=== PATIENT | male | born 1985 | race Two or more races ===

== ENCOUNTER 2024-10-02 07:54 | Outpatient (AMB) | payer MEDICAID, SELFPAY ==
--- NOTE | 2024-10-02 08:08 | PD.ORTHCLVIS ---
Vital signs 10/02/24 08:09 Height 1.7 m Height Method Stated Weight 95.028 kg Weight Measurement Method Standing Scale BMI 32.8 BP 130/80 Blood Pressure Source Automatic Cuff Blood Pressure Location Right Upper Arm Position Sitting Respiration 18 Pulse 65 Pulse Source Monitor Temp 98.3 F Temp Source Temporal Artery Scan Pulse Oximetry (%) 95 Oxygen Delivery Method Room Air Med/Allergies Allergies & Medications Allergies No Known Allergies Allergy (Verified 10/02/24 08:09) Medication Reconciliation celecoxib 200 mg capsule 200 mg PO BID #60 caps 08/14/24 [Rx Confirmed 10/02/24] Subjective Visit Visit for: follow up visit and knee Immunization / Flu Flu Vaccine in the Last 12 Months: No Flu Vaccine Exclusion Criteria: No Exclusion Criteria History of Present Illness Chief complaint: f/u knee pain Although is a 39-year-old male with a history of chronic pain on methadone who has persistent bilateral knee pain. We did bilateral knee meniscectomies that were staged. He received Approximately 3 months of relief on each knee. The pain did come back and we have been doing persistent injections. I set him a referral to pain management but he was unhappy with the provider there. He reports he has pain all the time Personal History Red flag PMH: smoker (NON SMOKER ) Pain Pain level (0-10): 8 Pain duration: all day Pain location: inside (medial), outside (lateral), anterior and posterior Pain quality: sharp Pain timing: increases with activity and stairs Associated signs & symptoms: none Ambulatory data Ambulatory device: none Treatments Improvement with previous injections: No Improvement with PT: No Improvement with NSAIDS: n/a Review of Systems Review of Systems: All systems negative unless otherwise noted in HPI. Exam Exam Patient is in no acute distress and is cooperative with the examination today. Patient has a normal mood and affect. Breathing is nonlabored. In no respiratory distress. Bilateral extremities were evaluated and demonstrates sensation intact to light touch. Palpable pedal pulses are present. No significant edema is present. Bilateral knee incisions are clean dry intact. He has a negative Boby's bilaterally. The knees have great range of motion. Range of motion 0 to 110 degrees. He is tender to palpation diffusely. Assessment and Plan Problem List (1) Medial meniscus tear: Status: Acute Plan: Patient is a pleasant 38-year-old male who initially recovered well from a right and left knee partial meniscectomy. Itz has persistent bilateral leg pain that starts in the knee and radiates down to his foot. He also prior spine fusion. I wonder how much of this is coming from His back and he has had a prior fusion there. I sent him to a pain management doctor but he was unhappy with the care. We are doing bilateral knee injections again today. He reports it helps for a very short period of time. I am not confident the pain is coming from his knee and I told him that it is very difficult to treat chronic knee pain especially with a history of back issues that are underlying. I recommend that he see a second opinion as I have not made him significantly better. I would recommend that he see a spine doctor versus a orthopedic sports doctor. We could potentially we order MRIs to see if there is any further pathology that we missed before. At this point in time, I do recommend that he see someone for a second opinion Office Procedures GNS Level of Care Nursing/Assessment Patient Status: Established Patient Nursing Assessment/Reassesment: Medication Reconciliation, Update PMH in EMR and Vital Signs Coordination of Care: Complex Care and Chronic Disease 1-5, Education Complex Pt/Fam, Consent,records obtained, informed consent, Results/Orders obtained and Staff clarify orders Established Patient Charge Established Patient Point Assignment: 95 Established Patient Point Charge: EP Level 3 (80-115) Past Medical History Past Medical History Have you ever been diagnosed with any of the following: Neurological Problems Seizures: No Cardiology Problems Congestive Heart Failure: No Respiratory Problems Chronic Obstructive Pulmonary Disease (COPD): No Smoking: No Smoking Cessation Counseling: No Smoking Exposure: No Tobacco Use: No Genital/Urinary Problems Renal Disease: No Endocrine Problems Diabetes Mellitus Type 1: No Diabetes Mellitus Type 2: No Other Problems Hospitalization: No Shingles: No Blood Transfusions: No Blood Transfusion Reaction: No Anesthesia Reactions: No Cancer: No
[2024-10-02 08:09] VITALS: BP 130/80; PULSE 65; RESP 18; TEMP 36.8; O2SAT 95; BMI 32.8
== END 2024-10-02 09:01 | disposition home or self-care (01) ==
LOC: HODSRG 07:54
PROVIDERS: Supervising Provider Orthopaedic Surgery Adult Reconstructive Orthopaedic Surgery; Visit Provider Orthopaedic Surgery Adult Reconstructive Orthopaedic Surgery
DX: S83.209D Unspecified tear of unspecified meniscus, current injury, unspecified knee, subsequent encounter (principal); X58.XXXD Exposure to other specified factors, subsequent encounter; M25.562 Pain in left knee; M25.561 Pain in right knee; Z98.890 Other specified postprocedural states
CPT/HCPCS: 20610; 99213; J3301; J3490; G0463

== ENCOUNTER → 2024-10-05 | Outpatient (CLI) | payer MEDICAID, SELFPAY ==
--- NOTE | 2024-10-05 10:28 | XR_ITS ---
Examination: Lumbar spine, 5 views Technique: Lumbar spine AP, lateral, coned lateral lower lumbar spine, bilateral obliques 5 views Exam date and time: October 05, 2024 1121 hours INDICATIONS: Right-sided lower back pain years, lumbar fusion 2011 FINDINGS: Lumbar fusion L4-S1 with anatomic alignment Mild disc narrowing L2-L3, L3-L4 No lumbar fracture IMPRESSION: Lumbar fusion L4-S1 with anatomic alignment
== END | disposition home or self-care (01) ==
PROVIDERS: PCP Family Medicine; Referring Provider Family Medicine; Visit Provider Family Medicine
DX: M43.27 Fusion of spine, lumbosacral region (principal)
CPT/HCPCS: 72110

== ENCOUNTER 2025-01-24 08:12 | Emergency (ER) | payer MEDICAID, SELFPAY ==
[2025-01-24 08:13] VITALS: BMI 31.1
[2025-01-24 08:28] VITALS: BP 149/99; PULSE 83; RESP 18; TEMP 36.8; O2SAT 99
--- NOTE | 2025-01-24 08:38 | EKG_ITS ---
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
--- NOTE | 2025-01-24 08:41 | XR_ITS ---
Examination: PA lateral chest 2 views TECHNIQUE: Upright PA and lateral chest 2 views Exam date and time: 2024 at 0911 hours INDICATIONS: Left-sided chest pain beginning 3 days ago. FINDINGS: Normal heart size. Lungs are clear. Osseous structures are intact. IMPRESSION: No active disease
[2025-01-24 08:56] LABS: Basophils # (Auto) 0.1 Thou/mm3 (0.0-0.2); Basophils % (Auto) 1 % (0-2.5); Eosinophils # (Auto) 0.1 Thou/mm3 (0.0-0.5); Eosinophils % (Auto) 2 % (0-10); Hemoglobin 17.3 g/dL (13.5-16.0); Immature Granulocytes % (Auto) 0 % (0-0); Immature Granulocytes Auto 0.01 Thou/mm3 (0.00-0.00); Lymphocytes # (Auto) 1.3 Thou/mm3 (1.0-4.8); Lymphocytes % (Auto) 21 % (10-50); Mean Corpuscular HGB Conc 34.6 g/dl (31.0-37.0); Mean Corpuscular Hemoglobin 30.2 pg (25.0-35.0); Mean Corpuscular Volume 87 fL (80-100); Monocytes # (Auto) 0.8 Thou/mm3 (0.0-0.8); Monocytes % (Auto) 13 % (0-12); Neutrophils # (Auto) 3.9 Thou/mm3 (1.8-7.7); Neutrophils % (Auto) 63 % (37-80); Nucleated Red Blood Cell % 0 /100 WBC (0); Platelet Count 255 Thou/mm3 (140-440); RDW Standard Deviation 39.7 fL (35.1-43.9); Red Blood Count 5.72 Miln/mm3 (4.50-5.90); White Blood Count 6.2 Thou/mm3 (3.8-10.6)
[2025-01-24 09:30] LABS: Collection Type, Urine Clean Catch; Squamous Epithelial Cell,Urine 0 /hpf (0-5)
[2025-01-24 09:43] LABS: Bilirubin,Urine Negative (Negative); Blood,Urine Negative (Negative); Clarity,Urine Clear (Clear/Hazy); Color,Urine Lt-Yellow (Lt Yel-Yel); Culture Indicated,Urine Not Indicated; Glucose, Urine Negative (Negative); Ketones,Urine Negative (Negative); Leukocyte Esterase,Urine Negative (Negative); Nitrite,Urine Negative (Negative); PH,Urine 6.5 (5.0-7.0); Protein,Urine Negative (Neg - Trace); RBC,Urine 2 /hpf (0-3); Specific Gravity,Urine 1.023 (1.001-1.035); Urobilinogen,Urine Negative mg/dL (0.0-1.0); WBC,Urine < 1 /hpf (0-5)
[2025-01-24 09:50] LABS: Amphetamine/Methamp Scrn,U Negative (Negative); Barbiturate Screen,Urine Negative (Negative); Benzodiazepines Screen,Urine Negative (Negative); Benzoylecgonine Screen, Ur Negative (Negative); Fentanyl Screen,Urine Negative (Negative); Opiate Screen,Urine Negative (Negative); THC Screen,Urine Negative (Negative)
[2025-01-24 10:05] LABS: Alanine Aminotransferase 18 U/L (10-49); Albumin, Serum 4.7 gm/dL (3.5-5.0); Albumin/Globulin Ratio 1.6 (1.2-2.2); Alkaline Phosphatase 90 U/L (46-116); Anion Gap 7 (7-16); Aspartate Amino Transferase 19 U/L (0-34); BUN/Creatinine Ratio 16 Ratio (12-20); Bilirubin,Total 0.6 mg/dL (0.3-1.2); Blood Urea Nitrogen 16 mg/dL (9-23); Calcium 9.8 mg/dL (8.3-10.6); Calcium (Corrected) 9.8 mg/dL (8.5-10.1); Carbon Dioxide 27.8 mMol/L (20.0-31.0); Chloride 105 mMol/L (98-107); Estimated Creatinine Clearance 109.7 mL/min (>60); Glucose 111 mg/dL (74-106); Lipase 34 U/L (12-53); Osmolality,Calculated 281 (275-295); Potassium 4.3 mMol/L (3.4-5.1); Sodium 140 mMol/L (136-145); Total Protein 7.7 gm/dL (5.7-8.2); Troponin I < 0.002 ng/mL (0.0-0.045); eGFR > 60 See Note
--- NOTE | 2025-01-24 10:22 | EDNOTE_ITS ---
<Statement entered by Melissa Pettit MD - 01/25/25 17:54> As co-signing physician, I was present and available for consult prn. I concur with the plan and care as documented by the midlevel provider. ED General RME/HPI General Chief complaint: Abdominal Pain Stated complaint: ABD PAIN RADIATING TO BACK, FEELS LIKE NEEDLES Time Seen by Provider: 01/24/25 08:15 Arrival date/time: 01/24/25 08:12 39-year-old male with history of anxiety history of drug use currently on methadone presents to the emergency department today for complaints of generalized anxiety, stress, chest pain abdominal pain and generalized bodyaches. Limitations: no limitations Related Data Previous Rx's ?Medication ?Instructions ?Recorded celecoxib 200 mg capsule 200 mg PO BID #60 caps 10/23 Allergies Allergy/AdvReac Type Severity Reaction Status Date / Time No Known Allergies Allergy Verified 01/24/25 08:16 Review of Systems Review of Systems Systems Reviewed: All systems reviewed, normal except as documented Constitutional Constitutional: Reports system reviewed and no additional complaints, except as documented, Denies fever(s) and Denies headache(s) Eyes Eyes: Reports system reviewed and no additional complaints, except as documented and Denies blurry vision ENT Ears, Nose, Mouth, and Throat: Reports system reviewed and no additional complaints, except as documented, Denies headache(s), Denies nasal congestion and Denies nasal discharge Cardiovascular Cardiovascular: Reports system reviewed and no additional complaints, except as documented, Denies chest pain and Denies dyspnea Respiratory Respiratory: Reports system reviewed and no additional complaints, except as documented, Denies chest congestion, Denies cough and Denies dyspnea Gastrointestinal Gastrointestinal: Reports system reviewed and no additional complaints, except as documented and Denies abdominal pain Integumentary/Breasts Skin/Breast: Reports system reviewed and no additional complaints, except as documented and Denies rash Neurologic Neurologic: Reports system reviewed and no additional complaints, except as documented, Reports as per HPI and Denies headache(s) Psychiatric Psychiatric: Reports system reviewed and no additional complaints, except as documented and Reports anxiety Past Medical History Past Medical History NEUROLOGIC: Negative Neurological Disorders or Seizures CARDIAC: Negative Cardiac Disorders or Congestive Heart Failure RESPIRATORY: Negative Chronic Obstructive Pulmonary Disease (COPD), Smoking, Smoking Cessation Counseling, Smoking Exposure or Tobacco Use GASTROINTESTINAL: Negative Gastrointestinal Disorders GENITOURINARY: Negative Genitourinary Disorders or Renal Disease MUSCULOSKELETAL: Positive Musculoskeletal Disorders (bilateral knee pain) ENDOCRINE: Negative Endocrine Disorders, Diabetes Mellitus Type 1 or Diabetes Mellitus Type 2 HEMATOLOGIC: Negative Blood Disorders OTHER HISTORY: Negative Hospitalization, Autoimmune Disease, Shingles, Blood Transfusions, Blood Transfusion Reaction, Anesthesia Reactions or Cancer Family History FAMILY HISTORY: Positive Family Surgery; Negative Family Psychiatric Problems, Family Respiratory Disorders, Family Cardiac Disorders, Family Gastrointestinal Problems, Family Cancer or Family Anesthesia Reaction Surgical History SURGICAL: Positive Nose Surgery (Septoplasty) and Arthroscopy (right knee) Social History SMOKING STATUS: Never smoker ED Exam General Limitations: Present no limitations General appearance: Present alert and in no apparent distress Head Head exam: Present atraumatic, normocephalic and normal inspection Eye Eye exam: Present normal appearance, PERRL and EOMI; Absent conjunctival injection ENT ENT exam: Present normal exam, normal oropharynx and mucous membranes moist Neck Neck exam: Present normal inspection, full ROM and trachea midline Chest Chest inspection: Present normal inspection and symmetric chest wall rise Respiratory Respiratory exam: Present normal lung sounds bilaterally; Absent respiratory distress Cardiovascular Cardiovascular exam: Present regular rate, normal rhythm and normal heart sounds Abdominal Exam Abdominal exam: Present soft and normal bowel sounds; Absent distention, tenderness, guarding, rebound or rigidity Extremities Exam Extremities exam: Present normal inspection and full ROM Back Exam Back exam: Present normal inspection and full ROM Neurological Exam Neurological exam: Present alert, oriented X3, CN II-XII intact, normal gait and reflexes normal; Absent motor sensory deficit Psychiatric Psychiatric exam: Present anxious; Absent depressed, agitated, flat affect, homicidal ideation or suicidal ideation Skin Skin exam: Present warm, dry and intact Course Quality Measures none Orders Category Date Time Status EKG (ED ONLY) *Do not use* NOW Care 01/24/25 08:38 Completed EKG (ED Only) Stat Exams 01/24/25 08:38 Draft XR chest 2V Stat Exams 01/24/25 08:41 Completed CBC Stat Lab 01/24/25 08:40 Completed Comprehensive Metabolic Panel Stat Lab 01/24/25 08:40 Completed Drug Screen,Urine Stat Lab 01/24/25 09:02 Completed Lipase Stat Lab 01/24/25 08:40 Completed Troponin I Stat Lab 01/24/25 08:40 Completed UA, C/S IF [Urinalysis, C/S if Indicated] Stat Lab 01/24/25 09:02 Completed Vital Signs Vital signs: Vital Signs Temperature 98.3 F 01/24/25 08:28 Pulse Rate 83 01/24/25 08:28 Respiratory Rate 18 01/24/25 08:28 Blood Pressure 149/99 H 01/24/25 08:28 Pulse Oximetry (%) 99 01/24/25 08:28 Oxygen Delivery Method Room Air 01/24/25 08:28 O2 saturation 99% on room air within the limits Procedures -ED EKG Interpretation #1: Date of EK01/24/25 Time of EK:46 Rate: 77 Interpretation: Interpreted by me EKG Impression: Normal sinus rhythm, No acute ST-T changes, No ectopy, No ischemic changes, Normal QRS, Normal intervals and Normal axis MDM Patient data External records reviewed:: [facility] previous records Clinical information provided by:: patient Social determinants that could affect healthcare access:: none Patient has the following chronic illnesses:: none How is presenting disease/condition affected by chronic disease/condition?: no chronic disease Evaluation data The following diagnostics were reviewed and interpreted by me:: lab results and radiology exam(s) Lab and/or radiology exams considered but not ordered:: Labs radiology obtained Interpretation Summary: Reviewed by me Medications Medications considered but not ordered:: Given Medication administrations:: Given Consultations Consultation(s) initiated? (list below): No Diagnosis Differential Diagnosis ED Complaint MDM: Anxiety, stress reaction, chest pain, abdominal pain Most likely diagnosis given after review of the tests above:: Anxiety Admission Indicated Admission indicated?: not indicated Explain why admission is indicated or not indicated:: No criteria Admission Request Was there a request for admission?: No Disposition Plan Disposition Plan: Discharge Discharge Attestation Discharge Attestation: The patient and all family members were given an opportunity to ask questions and understood the discharge instructions. Discharge instructions specifically effects, indications for sooner follow up or return to the emergency department, and the expected course of current diagnosis. Patient condition: Stable Medical Decision Making MDM Narrative MDM Narrative: 39-year-old male with history of anxiety history of drug use currently on methadone presents to the emergency department today for complaints of generalized anxiety, stress, chest pain abdominal pain and generalized bodyaches. Lab work as well as imaging and EKG obtained There are no acute emergent findings noted at this time Symptoms are highly consistent with anxiety Patient discharged home in no distress to follow-up with primary care doctor in the next 24 to 48 hours and for any worsening symptoms to return to the ER immediately Differential Diagnosis Differential Diagnosis: Anxiety, stress reaction, chest pain, abdominal pain Medical Records Medical records reviewed: Yes I reviewed the patient's medical records. Lab Data Lab results reviewed: Yes I reviewed the patient's lab results. 01/24/25 08:40 01/24/25 08:40 Labs: Lab Results 01/24/25 01/24/25 Range/Units 08:40 09:02 WBC 6.2 (3.8-10.6) Thou/mm3 RBC 5.72 (4.50-5.90) Miln/mm3 Hgb 17.3 H (13.5-16.0) g/dL Hct 50.0 (41.0-53.0) % MCV 87 (80-100) fL MCH 30.2 (25.0-35.0) pg MCHC 34.6 (31.0-37.0) g/dl RDW Std Deviation 39.7 (35.1-43.9) fL Plt Count 255 (140-440) Thou/mm3 Neut % (Auto) 63 (37-80) % Lymph % (Auto) 21 (10-50) % [place] % (Auto) 13 H (0-12) % Eos % (Auto) 2 (0-10) % Baso % (Auto) 1 (0-2.5) % Neut # (Auto) 3.9 (1.8-7.7) Thou/mm3 Lymph # (Auto) 1.3 (1.0-4.8) Thou/mm3 [place] # (Auto) 0.8 (0.0-0.8) Thou/mm3 Eos # (Auto) 0.1 (0.0-0.5) Thou/mm3 Baso # (Auto) 0.1 (0.0-0.2) Thou/mm3 Immature Gran # (Auto) 0.01 H (0.00-0.00) Thou/mm3 Absolute Nucleated RBC 0.00 (0.00-0.00) Thou/mm3 Immature Gran % 0 (0-0) % Nucleated RBC % 0 (0) /100 WBC Sodium 140 (136-145) mMol/L Potassium 4.3 (3.4-5.1) mMol/L Chloride 105 (98-107) mMol/L Carbon Dioxide 27.8 (20.0-31.0) mMol/L Anion Gap 7 (7-16) BUN 16 (9-23) mg/dL Creatinine 1.0 (0.6-1.3) mg/dL Estim Creat Clear Calc 109.7 (>60) mL/min eGFR > 60 (60 - ) See Note BUN/Creatinine Ratio 16 (12-20) Ratio Glucose 111 H (74-106) mg/dL Calculated Osmolality 281 (275-295) Calcium 9.8 (8.3-10.6) mg/dL Corrected Calcium 9.8 (8.5-10.1) mg/dL Total Bilirubin 0.6 (0.3-1.2) mg/dL AST 19 (0-34) U/L ALT 18 (10-49) U/L Alkaline Phosphatase 90 (46-116) U/L Troponin I < 0.002 (0.0-0.045) ng/mL Total Protein 7.7 (5.7-8.2) gm/dL Albumin 4.7 (3.5-5.0) gm/dL Globulin 3.0 (2.3-3.5) gm/dL Albumin/Globulin Ratio 1.6 (1.2-2.2) Lipase 34 (12-53) U/L Ur Collection Type Clean Catch Urine Color Lt-Yellow (Lt Yel-Yel) Urine Clarity Clear (Clear/Hazy) Urine pH 6.5 (5.0-7.0) Ur Specific [place] 1.023 (1.001-1.035) Urine Protein Negative (Neg - Trace) Urine Glucose (UA) Negative (Negative) Urine Ketones Negative (Negative) Urine Blood Negative (Negative) Urine Nitrite Negative (Negative) Urine Bilirubin Negative (Negative) Urine Urobilinogen (Auto) Negative (0.0-1.0) mg/dL Ur Leukocyte Esterase Negative (Negative) Urine RBC 2 (0-3) /hpf Urine WBC < 1 (0-5) /hpf Ur Squamous Epith Cells 0 (0-5) /hpf Urine Bacteria None (None) Ur Culture Indicated? Not Indicated Urine Opiates Screen Negative (Negative) Urine Fentanyl Screen Negative (Negative) Ur Barbiturates Screen Negative (Negative) U Amphetamin/Meth Scrn Negative (Negative) U Benzodiazepines Scrn Negative (Negative) U Cocaine Metab Screen Negative (Negative) U Marijuana (THC) Screen Negative (Negative) Radiology Data Radiology results reviewed: Yes I reviewed the patient's radiology results. Discharge Plan Plan Patient Disposition: HOME (Self Care) Disposition Comment: Stable Prescriptions/Referrals Prescriptions/Med Rec: No Action celecoxib 200 mg capsule 200 mg PO BID Qty: 60 2RF Referrals: Jian Tejeda [Primary Care Provider] - In 1 week Problem List Clinical Impression: Anxiety reaction, Pain Patient/Caregiver Discharge Instructions Education Materials: ED Anxiety Reaction Additional Instructions: Please follow up with your primary care doctor in the next 24-48hrs for any worsening symptoms return here immediately Print Language: Kinyarwanda Stand Alone Forms: Hien Award Info., Work/School Release, Patient Portal Info Letter PA/SUPERVISOR BEEHIVE KILN Supervising Physician PA/SUPERVISOR BEEHIVE KILN Supervising Physician: Dr. Pettit
== END 2025-01-24 10:49 | disposition home or self-care (01) ==
PROVIDERS: Nurse Practitioner Primary Care; Emergency Provider Emergency Medicine; PCP Family Medicine
DX: F41.1 Generalized anxiety disorder (principal); R07.89 Other chest pain; R10.84 Generalized abdominal pain
CPT/HCPCS: 36415; 71046; 80053; 80307; 81001; 83690; 84484; 85025; 93005; 99283

== ENCOUNTER 2025-03-10 08:28 | Emergency (ER) | payer MEDICAID, SELFPAY ==
[2025-03-10 08:37] VITALS: BP 158/92; PULSE 115; RESP 18; TEMP 38.5; O2SAT 98; BMI 30.2
--- NOTE | 2025-03-10 08:56 | EDNOTE_ITS ---
Upper Respiratory Inf. RME/HPI General Chief Complaint: Dental/Oral/Throat Stated Complaint: Swollen tonsils, fever, and sore throat Time Seen by Provider: 03/10/25 08:30 Arrival date/time: 03/10/25 08:28 39-year-old male presents emergency department today for complaints of sore throat, fever and swollen tonsils patient reports symptoms ongoing for the last couple of days Limitations: no limitations Related Data Previous Rx's ?Medication ?Instructions ?Recorded celecoxib 200 mg capsule 200 mg PO BID #60 caps 10/23 acetaminophen 500 mg capsule 1,000 mg (2 x 500 mg) PO Q8HR PRN 03/10/25 pain #30 caps amoxicillin 875 mg-potassium 1 tab PO BID 10 days #20 tabs 03/10/25 clavulanate 125 mg tablet Allergies Allergy/AdvReac Type Severity Reaction Status Date / Time No Known Allergies Allergy Verified 03/10/25 08:32 Review of Systems Review of Systems Systems Reviewed: All systems reviewed, normal except as documented Constitutional Constitutional: Reports system reviewed and no additional complaints, except as documented, Denies fever(s) and Denies headache(s) Eyes Eyes: Reports system reviewed and no additional complaints, except as documented and Denies blurry vision ENT Ears, Nose, Mouth, and Throat: Reports system reviewed and no additional complaints, except as documented, Denies headache(s), Reports nasal congestion and Denies nasal discharge Cardiovascular Cardiovascular: Reports system reviewed and no additional complaints, except as documented, Denies chest pain and Denies dyspnea Respiratory Respiratory: Reports system reviewed and no additional complaints, except as documented, Denies chest congestion, Denies cough and Denies dyspnea Gastrointestinal Gastrointestinal: Reports system reviewed and no additional complaints, except as documented and Denies abdominal pain Integumentary/Breasts Skin/Breast: Reports system reviewed and no additional complaints, except as documented and Denies rash Neurologic Neurologic: Reports system reviewed and no additional complaints, except as documented, Reports as per HPI and Denies headache(s) Past Medical History Past Medical History NEUROLOGIC: Negative Neurological Disorders or Seizures CARDIAC: Negative Cardiac Disorders or Congestive Heart Failure RESPIRATORY: Negative Chronic Obstructive Pulmonary Disease (COPD), Smoking, Smoking Cessation Counseling, Smoking Exposure or Tobacco Use GASTROINTESTINAL: Negative Gastrointestinal Disorders GENITOURINARY: Negative Genitourinary Disorders or Renal Disease MUSCULOSKELETAL: Positive Musculoskeletal Disorders (bilateral knee pain) ENDOCRINE: Negative Endocrine Disorders, Diabetes Mellitus Type 1 or Diabetes Me llitus Type 2 HEMATOLOGIC: Negative Blood Disorders OTHER HISTORY: Negative Hospitalization, Autoimmune Disease, Shingles, Blood Transfusions, Blood Transfusion Reaction, Anesthesia Reactions or Cancer Family History FAMILY HISTORY: Positive Family Surgery; Negative Family Psychiatric Problems, Family Respiratory Disorders, Family Cardiac Disorders, Family Gastrointestinal Problems, Family Cancer or Family Anesthesia Reaction Surgical History SURGICAL: Positive Nose Surgery (Septoplasty) and Arthroscopy (right knee) Social History SMOKING STATUS: Never smoker ED Exam General Limitations: Present no limitations General appearance: Present alert and in no apparent distress Head Head exam: Present atraumatic, normocephalic and normal inspection Eye Eye exam: Present normal appearance, PERRL and EOMI; Absent conjunctival injection ENT ENT exam: Present other (Pharyngitis) Neck Neck exam: Present normal inspection, full ROM and trachea midline; Absent tenderness Chest Chest inspection: Present normal inspection and symmetric chest wall rise Respiratory Respiratory exam: Present normal lung sounds bilaterally; Absent respiratory distress, wheezes, stridor or accessory muscle use Cardiovascular Cardiovascular exam: Present regular rate, normal rhythm and normal heart sounds Abdominal Exam Abdominal exam: Present soft and normal bowel sounds Extremities Exam Extremities exam: Present normal inspection and full ROM Back Exam Back exam: Present normal inspection and full ROM Neurological Exam Neurological exam: Present alert, oriented X3, CN II-XII intact, normal gait and reflexes normal; Absent motor sensory deficit Psychiatric Psychiatric exam: Present normal affect and normal mood Skin Skin exam: Present warm, dry, intact and normal color; Absent rash Course Quality Measures none Orders Category Date Time Status Acetaminophen Tab [Tylenol ES Tab] Med 03/10/25 08:45 Discontinued 1,000 mg PO X1 ONE Dexamethasone Inj [Decadron Inj] Med 03/10/25 08:45 Discontinued 10 mg PO X1 ONE Lidocaine 1% 20 ml [Xylocaine 1% 20 ML] Med 03/10/25 08:45 Discontinued 2.1 ml INFL X1 ONE cefTRIAXone [Rocephin] Med 03/10/25 08:45 Discontinued 1,000 mg IM X1 ONE Vital Signs Vital signs: Vital Signs Temperature 101.3 F H 03/10/25 08:37 Pulse Rate 115 H 03/10/25 08:37 Respiratory Rate 18 03/10/25 08:37 Blood Pressure 158/92 H 03/10/25 08:37 Pulse Oximetry (%) 98 03/10/25 08:37 Oxygen Delivery Method Room Air 03/10/25 08:37 O2 saturation 98% on room air within normal limits Upper Respiratory Infection MDM Narrative MDM Narrative:: 39-year-old male presents emergency department today for complaints of sore throat, fever and swollen tonsils patient reports symptoms ongoing for the last couple of days On exam patient well-appearing patient does not appear ill or toxic despite having fever Patient given medication here discharge home with meds symptoms are highly consistent with strep throat Patient discharged home in no distress to follow-up with primary care doctor in the next 24 to 48 hours and for any worsening symptoms to return to the ER immediately Patient data External records reviewed:: [facility] previous records Clinical information provided by:: patient Social determinants that could affect healthcare access:: none Patient has the following chronic illnesses:: None How is presenting disease/condition affected by chronic disease/condition?: no chronic disease Evaluation data The following diagnostics were reviewed and interpreted by me:: other (specify) Lab and/or radiology exams considered but not ordered:: Consider not ordered Interpretation Summary: N/A Medications / Prescriptions Medications or Prescriptions considered but not ordered:: Given Medication administrations:: Medication Administration History Discontinued Medications Acetaminophen (Acetaminophen 500 Mg Tablet) 1,000 mg PO X1 ONE Stop: 03/10/25 08:46 Last Admin: 03/10/25 08:58 Dose: 1,000 mg Documented By: LT Ceftriaxone Sodium (Ceftriaxone Sod Inj 1,000 Mg Vial) 1,000 mg IM X1 ONE Stop: 03/10/25 08:46 Last Admin: 03/10/25 08:58 Dose: 1,000 mg Documented By: LT Dexamethasone Sodium Phosphate (Dexamethasone Sod Phos Inj 10 Mg/Ml Vial) 10 mg PO X1 ONE Stop: 03/10/25 08:46 Last Admin: 03/10/25 08:58 Dose: 10 mg Documented By: LT Comments: PO GIVEN PER MD ORDERS Lidocaine HCl (Lidocaine Hcl 1% 20 Ml Vial) 2.1 ml INFL X1 ONE Stop: 03/10/25 08:46 Last Admin: 03/10/25 08:58 Dose: 2.1 ml Documented By: LT Given Consultations Consultation(s) initiated? (list below): No Diagnosis Upper Respiratory Differential Diagnosis: upper respiratory infection, sinusitis, viral infection, influenza and pharyngitis Most likely diagnosis given after review of the tests above:: Streptococcal pharyngitis Admission Indicated Admission indicated?: not indicated Admission Request Was there a request for admission?: No Disposition Plan Disposition Plan: Discharge Discharge Attestation Discharge Attestation: The patient and all family members were given an opportunity to ask questions and understood the discharge instructions. Discharge instructions specifically effects, indications for sooner follow up or return to the emergency department, and the expected course of current diagnosis. Patient condition: Stable Discharge Plan Plan Patient Disposition: HOME (Self Care) Discharge Disposition comment: Stable Prescriptions/Referrals Prescriptions/Med Rec: New acetaminophen 500 mg capsule 1,000 mg PO Q8HR PRN (Reason: pain) Qty: 30 0RF amoxicillin-pot clavulanate 875-125 mg tablet 1 tab PO BID 10 Days Qty: 20 0RF No Action celecoxib 200 mg capsule 200 mg PO BID Qty: 60 2RF Problem List Clinical Impression: Pharyngitis Patient/Caregiver Discharge Instructions Education Materials: ED URI, Viral, No Abx (Adult) Additional Instructions: Please follow up with your primary care doctor in the next 24-48hrs for any worsening symptoms return here immediately Print Language: Tajik Stand Alone Forms: Hien Award Info., Patient Portal Info Letter PA/ASSET LIABILITY ANALYST Supervising Physician PA/ASSET LIABILITY ANALYST Supervising Physician: dr vasquez
[2025-03-10 08:58] VITALS: TEMP 38.5
[2025-03-10] MEDS: DEXAMETHASONE SOD PHOS INJ 10 MG/ML VIAL PO (08:58)
[2025-03-10] MEDS: LIDOCAINE HCL 1% 20 ML VIAL 2.1 ML INFL (08:58)
[2025-03-10] MEDS: cefTRIAXone SOD INJ 1,000 MG VIAL 1000 MG IM (08:58)
[2025-03-10] MEDS: ACETAMINOPHEN 500 MG TABLET 1000 MG PO (08:58)
== END 2025-03-10 09:04 | disposition home or self-care (01) ==
LOC: SERX 09:10
PROVIDERS: Emergency Provider Emergency Medicine; PCP Family Medicine
DX: J02.9 Acute pharyngitis, unspecified (principal)
CPT/HCPCS: 96372; 99283; J0696; J1100; J3490; A9270

== ENCOUNTER 2025-06-19 04:17 | Emergency (ER) | payer MEDICAID, SELFPAY ==
[2025-06-19 04:17] VITALS: BMI 30.2
--- NOTE | 2025-06-19 04:20 | EKG_ITS ---
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
[2025-06-19 04:25] VITALS: BP 135/87; PULSE 58; RESP 18; TEMP 36.6; O2SAT 97
--- NOTE | 2025-06-19 04:50 | PD.EDRME ---
Rapid Medical Screening Exam RME Arrival date/time: 06/19/25 04:17 40M with history of drug/alcohol use presents to ED with several days of CP and SOB, worse when lying down. Patient denies URI symptoms. Patient had R knee surgery about 2 weeks ago. Chief Complaint: Shortness of Breath/Dyspnea Vital signs: Vital Signs Temperature 98 F 06/19/25 04:25 Pulse Rate 58 L 06/19/25 04:25 Respiratory Rate 18 06/19/25 04:25 Blood Pressure 135/87 H 06/19/25 04:25 Pulse Oximetry (%) 97 06/19/25 04:25 Oxygen Delivery Method Room Air 06/19/25 04:25
[2025-06-19 05:21] LABS: Basophils # (Auto) 0.1 Thou/mm3 (0.0-0.2); Basophils % (Auto) 1 % (0-2.5); Eosinophils # (Auto) 0.2 Thou/mm3 (0.0-0.5); Eosinophils % (Auto) 2 % (0-10); Hematocrit 48.5 % (41.0-53.0); Hemoglobin 16.8 g/dL (13.5-16.0); Immature Granulocytes Auto 0.02 Thou/mm3 (0.00-0.00); Lymphocytes # (Auto) 2.5 Thou/mm3 (1.0-4.8); Lymphocytes % (Auto) 40 % (10-50); Mean Corpuscular HGB Conc 34.6 g/dl (31.0-37.0); Mean Corpuscular Hemoglobin 30.9 pg (25.0-35.0); Mean Corpuscular Volume 89 fL (80-100); Monocytes # (Auto) 1.0 Thou/mm3 (0.0-0.8); Monocytes % (Auto) 16 % (0-12); Neutrophils # (Auto) 2.5 Thou/mm3 (1.8-7.7); Neutrophils % (Auto) 40 % (37-80); Nucleated Red Blood Cell # 0.00 Thou/mm3 (0.00-0.00); Nucleated Red Blood Cell % 0 /100 WBC (0); Platelet Count 214 Thou/mm3 (140-440); RDW Standard Deviation 38.0 fL (35.1-43.9); Red Blood Count 5.44 Miln/mm3 (4.50-5.90); White Blood Count 6.2 Thou/mm3 (3.8-10.6)
[2025-06-19 05:37] LABS: INR 1.0 (0.9-1.3); Partial Thromboplastin Time 28.3 Seconds (22.0-36.0); Prothrombin Time 11.4 Seconds (9.0-12.2)
[2025-06-19 05:40] LABS: B-Type Natriuretic Peptide < 20 pg/mL (0-100)
[2025-06-19 05:45] LABS: Alanine Aminotransferase 23 U/L (10-49); Albumin, Serum 4.1 gm/dL (3.5-5.0); Albumin/Globulin Ratio 1.6 (1.2-2.2); Alcohol, Blood Medical < 3.0 mg/dL (0-10.0); Alkaline Phosphatase 83 U/L (46-116); Anion Gap 8 (7-16); Aspartate Amino Transferase 24 U/L (0-34); BUN/Creatinine Ratio 17 Ratio (12-20); Bilirubin,Total 0.4 mg/dL (0.3-1.2); Blood Urea Nitrogen 17 mg/dL (9-23); Calcium 9.8 mg/dL (8.3-10.6); Calcium (Corrected) 9.8 mg/dL (8.5-10.1); Carbon Dioxide 29.1 mMol/L (20.0-31.0); Chloride 104 mMol/L (98-107); Creatinine (Component) 1.0 mg/dL (0.6-1.3); Estimated Creatinine Clearance 110.6 mL/min (>60); Globulin 2.5 gm/dL (2.3-3.5); Glucose 99 mg/dL (74-106); Magnesium 1.8 mg/dL (1.6-2.6); Osmolality,Calculated 282 (275-295); Potassium 4.5 mMol/L (3.4-5.1); Sodium 141 mMol/L (136-145); Total Protein 6.6 gm/dL (5.7-8.2); Troponin I < 0.002 ng/mL (0.0-0.045); eGFR > 60 See Note
[2025-06-19 05:46] LABS: D-Dimer < 250 ng/mL (<600)
[2025-06-19 05:49] VITALS: PULSE 64
--- NOTE | 2025-06-19 06:02 | XR_ITS ---
Examination: AP chest single view FINDINGS: AP portable upright chest single view Date and time: June 19, 2025, 0637 hours, comparison January 24, 2025 INDICATIONS: Onset chest pain today FINDINGS: Minimal prominence left ventricle. No pneumonia or pulmonary edema. The osseous structures are intact. IMPRESSION: No pneumonia or pulmonary edema.
[2025-06-19 06:15] LABS: Amphetamine/Methamp Scrn,U Negative (Negative); Barbiturate Screen,Urine Negative (Negative); Benzodiazepines Screen,Urine Negative (Negative); Benzoylecgonine Screen, Ur Negative (Negative); Fentanyl Screen,Urine Negative (Negative); Opiate Screen,Urine Positive (Negative); THC Screen,Urine Negative (Negative)
--- NOTE | 2025-06-19 06:19 | PD.EDSOB ---
ED SOB =RME/HPI General Chief Complaint: Shortness of Breath/Dyspnea Stated Complaint: SOB/ CHEST PRESSURE Time Seen by Provider: 06/19/25 05:59 Arrival date/time: 06/19/25 04:17 Limitations: no limitations RME / HPI RME / HPI Narrative: 06/19/25 04:17 40M with history of drug/alcohol use presents to ED with several days of CP and SOB, worse when lying down. Patient denies URI symptoms. Patient had R knee surgery about [address] DONALD CHUNG ED EVALUATION: 40-year-old male with a history of anxiety presents to the Emergency Department with episodes of shortness of breath with palpitations. He reports waking up two nights ago with sudden onset of shortness of breath and palpitations, which resolved spontaneously. Tonight, he experienced a similar episode at approximately 3:30 AM, he woke from sleep, which he suspects may have been an anxiety attack. He denies chest pain, syncope, or family history of cardiac disease. Past surgical history is notable for a right meniscus repair performed one month ago. Related Data Previous Rx's ?Medication ?Instructions ?Recorded celecoxib 200 mg capsule 200 mg PO BID #60 caps 10/23/24 acetaminophen 500 mg capsule 1,000 mg (2 x 500 mg) PO Q8HR PRN 03/10/25 pain #30 caps Allergies Allergy/AdvReac Type Severity Reaction Status Date / Time No Known Allergies Allergy Verified 03/10/25 08:32 Review of Systems Review of Systems Systems Reviewed: All systems reviewed, normal except as documented Past Medical History Past Medical History CARDIAC: Positive Cardiac Arrhythmia RESPIRATORY: Positive Asthma GASTROINTESTINAL: Positive Gastroesophageal Reflux Disease MUSCULOSKELETAL: Positive Musculoskeletal Disorders PSYCHO/SOCIAL: Positive Anxiety OTHER HISTORY: Positive Hospitalization Family History FAMILY HISTORY: Positive Family Surgery Surgical History SURGICAL: Positive Nose Surgery, Knee Sx (BILATERAL), Arthroscopy and of Back Surgery Social History SMOKING STATUS: Never smoker SUBSTANCE USE: does not use ED Exam General Limitations: Present no limitations General appearance: Present alert and in no apparent distress Head Head exam: Present atraumatic, normocephalic and normal inspection Eye Eye exam: Present normal appearance, PERRL and EOMI ENT ENT exam: Present normal exam, normal oropharynx and mucous membranes moist Neck Neck exam: Present normal inspection, full ROM and trachea midline Chest Chest inspection: Present normal inspection and symmetric chest wall rise Respiratory Respiratory exam: Present normal lung sounds bilaterally Cardiovascular Cardiovascular exam: Present regular rate, normal rhythm and normal heart sounds Abdominal Exam Abdominal exam: Present soft and normal bowel sounds Extremities Exam Extremities exam: Present normal inspection and full ROM Back Exam Back exam: Present normal inspection and full ROM Neurological Exam Neurological exam: Present alert, oriented X3 and CN II-XII intact Psychiatric Psychiatric exam: Present normal affect and normal mood Skin Skin exam: Present warm, dry, intact and normal color Course Quality Measures none Orders Category Date Time Status CT Screening NOW Care 06/19/25 06:19 Completed Rehab Nurse Q4H START 00 Care 06/19/25 04:50 Completed EKG (ED ONLY) *Do not use* NOW Care 06/19/25 04:21 Completed Insert IV NOW Care 06/19/25 05:[address] angio chest Stat Exams 06/19/25 06:19 Completed EKG (ED Only) Stat Exams 06/19/25 04:20 Draft US venous doppler LE RT Stat Exams 06/19/25 06:19 Completed XR chest 1V portable Stat Exams 06/19/25 06:02 Completed Alcohol, Blood Medical Stat Lab 06/19/25 05:01 Completed B-Type Natriuretic Peptide Stat Lab 06/19/25 05:01 Completed CBC Stat Lab 06/19/25 05:01 Completed Comprehensive Metabolic Panel Stat Lab 06/19/25 05:01 Completed D-Dimer Stat Lab 06/19/25 05:01 Completed Drug Screen,Urine Stat Lab 06/19/25 05:46 Completed Magnesium Stat Lab 06/19/25 05:01 Completed Partial Thromboplastin Time Stat Lab 06/19/25 05:01 Completed Prothrombin Time with INR Stat Lab 06/19/25 05:01 Completed Troponin I Stat Lab 06/19/25 05:01 Completed Troponin I Stat Lab 06/19/25 07:03 Completed LORazepam [Ativan] Med 06/19/25 06:19 Discontinued 0.5 mg PO X1 ONE Vital Signs Vital signs: Vital Signs Temperature 98 F 06/19/25 04:25 Pulse Rate 58 L 06/19/25 04:25 Respiratory Rate 18 06/19/25 04:25 Blood Pressure 135/87 H 06/19/25 04:25 Pulse Oximetry (%) 97 06/19/25 04:25 Oxygen Delivery Method Room Air 06/19/25 04:25 Shortness of Breath / Dyspnea MDM Narrative MDM Narrative:: I, Viki Morales, am scribing for and in the presence of Dr. Burgess. Heart score is 1. Normal exam. No family history. History of right meniscus repair a month ago. Will order a CTA of his chest and an US of the right leg. Patient data External records reviewed:: [facility] previous records Clinical information provided by:: patient Social determinants that could affect healthcare access:: none Patient has the following chronic illnesses:: Anxiety. No family history of cardiac disease. Past surgical history is notable for a right meniscus repair performed one month ago. How is presenting disease/condition affected by chronic disease/condition?: exacerbated by Evaluation data The following diagnostics were reviewed and interpreted by me:: lab results, radiology exam(s) and EKG tracing(s) (My interpretation: EKG performed at 0429 hours, normal sinus rhythm, rate 66, normal intervals, normal axis, no ectopy, no signs of acute ischemia, no STEMI) Lab and/or radiology exams considered but not ordered:: none Interpretation Summary: Procedure(s): CT angio chest Accession Number(s): [id number] cc: Donis Mason MD; NO PRIMARY/FAMILY,PHYSICIAN; Luis Burgess MD~ Examination: CTA chest with intravenous contrast 2-D reconstructions 3-D reconstructions, vascular Date and time of exam: June 19, 2025, 0645 hours INDICATIONS: Chest pain shortness of breath beginning this morning. CTDI: vol (mGy) 21.7. DLP: (mGycm) 506. Technique: Multiple axial sections of the thorax have been obtained. 3 mm slice thickness, from below the hemidiaphragms to above the apices of the lungs. Mediastinal and lung density settings have been obtained. 2-D sagittal and coronal reconstructions. 3-D angiographic renderings, 3-D volume renderings, 3D post processing, vascular maximum intensity projections obtained. Contrast administered is 100 cc Isovue 370 intravenous.. Low dose protocols were performed. One or more of the following dose reduction techniques were used; automated exposure control, adjustment of the mA and/or KV according to patient size, use of iterative reconstruction technique. Findings: No thoracic aortic aneurysmal dilatation or dissection Pulmonary artery segments are not enlarged. No pulmonary artery filling defects. No paratracheal tracheobronchial or bronchopulmonary adenopathy. No pneumonia, pulmonary edema or pleural disease No visualized liver splenic lesion No gallstones. No pancreatic edema. Normal adrenal glands. Kidneys are partially visualized, no hydronephrosis Visualized abdominal aorta is intact Osseous structures intact. IMPRESSION: Negative for pulmonary artery emboli. No pneumonia, pulmonary edema, or pleural disease Dictated By: Donis Mason MD Procedure(s): XR chest 1V portable Accession Number(s): [id number] cc: Donis Mason MD; NO PRIMARY/FAMILY,PHYSICIAN; Luis Burgess MD~ Examination: AP chest single view FINDINGS: AP portable upright chest single view Date and time: June 19, 2025, 0637 hours, comparison January 24, 2025 INDICATIONS: Onset chest pain today FINDINGS: Minimal prominence left ventricle. No pneumonia or pulmonary edema. The osseous structures are intact. IMPRESSION: No pneumonia or pulmonary edema. Dictated By: Donis Mason MD Procedure(s): US venous doppler LE RT Accession Number(s): [id number] cc: Donis Mason MD; NO PRIMARY/FAMILY,PHYSICIAN; Luis Burgess MD~ Examination: Duplex scan of the lower extremity, unilateral right complete Date and time of exam: June 19, 2025, 0800 hrs. Indications: Right knee surgery May 11, 2025, onset chest pain shortness of breath today. Technique: Duplex scan of the extremity veins using B-mode/grayscale imaging and Doppler spectral analysis and color flow Attention is directed to internal echogenicity, compression and augmentation involving these veins, color flow assessment, spectral analysis Findings: Major deep venous structures in the extremity demonstrate normal course and caliber. There is no evidence of deep vein thrombosis. Normal color flow and spectral analysis Impression: Negative for DVT.. Dictated By: Donis Mason MD Medications / Prescriptions Medications or Prescriptions considered but not ordered:: none Medication administrations:: Medication Administration History Discontinued Medications Lorazepam (Lorazepam 0.5 Mg Tablet) 0.5 mg PO X1 ONE Stop: 06/19/25 06:20 Last Admin: 06/19/25 06:28 Dose: 0.5 mg Documented By: BD see above Consultations Consultation(s) initiated? (list below): No Diagnosis Shortness of Breath Differential Diagnosis: other (Anxiety or panic attack, arrhythmia, and pulmonary embolism.) Most likely diagnosis given after review of the tests above:: Anxiety reaction Heart palpitations Admission Indicated Admission indicated?: not indicated Admission Request Was there a request for admission?: No Disposition Plan Disposition Plan: Discharge Discharge Attestation Discharge Attestation: The patient and all family members were given an opportunity to ask questions and understood the discharge instructions. Discharge instructions specifically effects, indications for sooner follow up or return to the emergency department, and the expected course of current diagnosis. Patient condition: Stable Discharge Plan Plan Patient Disposition: HOME (Self Care) Discharge Disposition comment: Stable for discharge home Patient condition on transfer: Stable Prescriptions/Referrals Prescriptions/Med Rec: No Action celecoxib 200 mg capsule 200 mg PO BID Qty: 60 2RF acetaminophen 500 mg capsule 1,000 mg PO Q8HR PRN (Reason: pain) Qty: 30 0RF Referrals: [facility] [Provider Group] - In 1 week Problem List Clinical Impression: Anxiety reaction, Heart palpitations Patient/Caregiver Discharge Instructions Discharge Activity: activity as tolerated Education Materials: Selective Serotonin Reuptake ..., Treating Panic Disorder with ..., ED Anxiety Reaction Additional Instructions: Today you were seen in the emergency department for shortness of breath and palpitations with an anxiety reaction. The CT scan of your chest and the ultrasound of your right leg showed no evidence of a blood clot. Your EKG and your blood work were very reassuring. We gave you 0.5 mg Ativan and that seems to work better than the clonazepam. You should bring this up with your primary care physician and discuss potentially changing to the Ativan. You may benefit from starting a medication called an SSRI. These were originally antidepressant but they also treat anxiety very well. This is a medicine that you take every day to decrease or prevent future anxiety. It takes about 6 weeks for this medicine to kick in. You must take the medicine every day for 6 weeks in order for it to help you Print Language: Mauritanian Stand Alone Forms: Hien Award Info., Patient Portal Info Letter
[2025-06-19 06:25] VITALS: BP 131/80; PULSE 62; RESP 15; TEMP 36.7; O2SAT 96
[2025-06-19 07:37] LABS: Troponin I < 0.002 ng/mL (0.0-0.045)
[2025-06-19 09:35] VITALS: BP 138/99; PULSE 74; RESP 16; TEMP 36.7; O2SAT 99
== END 2025-06-19 09:18 | disposition home or self-care (01) ==
PROVIDERS: Emergency Medicine; Emergency Provider Emergency Medicine
DX: F41.1 Generalized anxiety disorder (principal); R00.2 Palpitations
CPT/HCPCS: 36415; 71045; 71275; 80053; 80307; 80320; 81001; 83735; 83880; 84484; 85025; 85379; 85610; 85730; 93005; 93971; 99283; A4649; Q9967; A9270; G0480

== ENCOUNTER 2025-09-26 10:47 | Emergency (ER) | payer MEDICAID, SELFPAY ==
[2025-09-26 10:48] VITALS: BMI 30.2
[2025-09-26 11:28] VITALS: BP 129/87; PULSE 117; RESP 24; TEMP 38; O2SAT 97
--- NOTE | 2025-09-26 11:56 | XR_ITS ---
Examination: CT maxillofacial, with contrast 2-D sagittal and coronal reconstructions. 3-D reconstructions Date and time of exam: September 26, 2025, 1321 hours INDICATIONS: Sinus pressure and pain facial swelling 3 days CTDI: vol (mGy): 25 DLP: (mGycm): 497 Technique: Multiple axial images maxillofacial region, 3.0 mm slice thickness, post intravenous injection 50 cc Isovue-370 Low dose protocols, automated exposure control FINDINGS: The optic globes are intact, no retro-orbital lesion Symmetrical nasopharynx oropharynx No soft tissue abscess Nonspecific carotid triangle lymphadenopathy The larynx appears normal Normal epiglottis No prevertebral soft tissue prominence Mild hypertrophy inferior nasal turbinates Pneumatization left middle turbinate No nasal passage abscess Chronic mucosal disease in the maxillary antra ethmoid air cells frontal air cells and sphenoid air cells No cortical bone destruction Impression: Prominent chronic sinusitis especially ethmoid air cells Mild hypertrophy inferior nasal turbinates No nasal passageway abscess No facial abscess
--- NOTE | 2025-09-26 11:58 | EDRME_ITS ---
Rapid Medical Screening Exam [facility] Arrival date/time: 09/26/25 10:47 This is a 40-year-old male that comes into the emergency room with complaints of nose swelling. Patient states that he whacked his nose approximately 3 days ago and developed a small pimple. Patient states he tried to pop it on his own and it got worse. Patient states that he has been able to drain pus out of his nose. Patient reports that today he is having maxillary sinus pain and thinks the infection is spreading into his's maxillary area. Patient comes in febrile and also has complaints of upper respiratory symptoms. I have greeted and performed a focused initial assessment of this patient. Initial appropriate labs ordered at this time. A comprehensive ED assessment and evaluation of the patient and analysis of all test and completion of medical decision making process will be conducted by additional ED provider. Chief Complaint: Flu Like Symptoms Time Seen by Provider: 09/26/25 11:32 Vital signs: Vital Signs Temperature 100.4 F 09/26/25 11:28 Pulse Rate 117 H 09/26/25 11:28 Respiratory Rate 24 H 09/26/25 11:28 Blood Pressure 129/87 H 09/26/25 11:28 Pulse Oximetry (%) 97 09/26/25 11:28 Oxygen Delivery Method Room Air 09/26/25 11:28 Exam: Alert and oriented, breathing even and unlabored Clinical Impression: Nasal swelling
[2025-09-26] MEDS: IBUPROFEN TAB 400 MG TABLET 800 MG PO (12:14)
--- NOTE | 2025-09-26 12:19 | PD.EDADULT ---
ED General RME/HPI General Chief complaint: Flu Like Symptoms Stated complaint: NASTY COLD NOSE SWELLING X3 DAYS Time Seen by Provider: 09/26/25 11:32 Arrival date/time: 09/26/25 10:47 CC: Nose pain HPI ongoing for the past week and a half, patient had his naris waxed , after which the nose became infected. Prior history of similar event which the patient was able to pop the pimple inside the nose and made it go away this time and nothing worked. Patient states pain is 8 on a 10 scale nonradiating patient also complaining of cold symptoms for the past 2 weeks. Patient denies chest pain shortness of breath difficulty breathing denies fever yesterday. RME / HPI RME / HPI narrative: 09/26/25 10:47 This is a 40-year-old male that comes into the emergency room with complaints of nose swelling. Patient states that he whacked his nose approximately 3 days ago and developed a small pimple. Patient states he tried to pop it on his own and it got worse. Patient states that he has been able to drain pus out of his nose. Patient reports that today he is having maxillary sinus pain and thinks the infection is spreading into his's maxillary area. Patient comes in febrile and also has complaints of upper respiratory symptoms. I have greeted and performed a focused initial assessment of this patient. Initial appropriate labs ordered at this time. A comprehensive ED assessment and evaluation of the patient and analysis of all test and completion of medical decision making process will be conducted by additional ED provider. Exam: Alert and oriented, breathing even and unlabored Impression: Nasal swelling Related Data Previous Rx's ?Medication ?Instructions ?Recorded celecoxib 200 mg capsule 200 mg PO BID #60 caps 10/23/24 acetaminophen 500 mg capsule 1,000 mg (2 x 500 mg) PO Q8HR PRN 03/10/25 pain #30 caps Allergies Allergy/AdvReac Type Severity Reaction Status Date / Time No Known Allergies Allergy Verified 09/26/25 10:51 Review of Systems Review of Systems Narrative Review of Systems: GEN: No fever, no chills, no weight loss EYES: No discharge, no visual changes, no pain HEENT: No ear pain, no congestion, no sore throat, + nose pain PULM: No shortness of breath, no cough, no congestion CV: No chest pain, no dyspnea on exertion, no palpitations GI: No nausea, no vomiting, no diarrhea, no pain, no constipation : No frequency, no urgency, no dysuria MUSC/SKEL: No joint pain, no back pain SKIN: No rash PSYCH: No hallucinations, no depression HEME/LYMPH: No easy bleeding or bruising tendencies NEURO: No weakness, no headache Past Medical History Past Medical History NEUROLOGIC: Negative Neurological Disorders or Seizures CARDIAC: Positive Cardiac Arrhythmia; Negative Cardiac Disorders or Congestive Heart Failure RESPIRATORY: Positive Asthma; Negative Chronic Obstructive Pulmonary Disease (COPD), Smoking, Smoking Cessation Counseling, Smoking Exposure or Tobacco Use GASTROINTESTINAL: Positive Gastroesophageal Reflux Disease; Negative Gastrointestinal Disorders GENITOURINARY: Negative Genitourinary Disorders or Renal Disease MUSCULOSKELETAL: Positive Musculoskeletal Disorders ENDOCRINE: Negative Endocrine Disorders, Diabetes Mellitus Type 1 or Diabetes Mellitus Type 2 HEMATOLOGIC: Negative Blood Disorders or Sickle Cell Disease PSYCHO/SOCIAL: Positive Anxiety OTHER HISTORY: Positive Hospitalization; Negative Autoimmune Disease, Shingles, Blood Transfusions, Blood Transfusion Reaction, Anesthesia Reactions or Cancer Family History FAMILY HISTORY: Positive Family Surgery; Negative Family Psychiatric Problems, Family Respiratory Disorders, Family Cardiac Disorders, Family Gastrointestinal Problems, Family Cancer or Family Anesthesia Reaction Surgical History SURGICAL: Positive Nose Surgery and Arthroscopy Social History SMOKING STATUS: Never smoker SUBSTANCE USE: does not use ED Exam Narrative Physical exam: [General: In mild discomfort but not in any acute distress Head normocephalic HEENT: Eyes pupils are PERRLA EOMs are intact mouth pink moist membranes uvula is midline swallow symmetrical nose: The distal portion of the nose is erythematous edematous exquisitely tender to touch there is no indurated center no open lesions or ulceration. Nares: Bilateral nares are pink middle turbinate is clearly visible not edematous erythematous. All other subsystems of HEENT are within acceptable limits Neck is supple nontender no LAD Chest equal chest rise nontender to palpation Respiratory: Clear to auscultation no wheezes crackles or rubs CV: Rate rhythm is regular no murmurs rubs or clicks Abdomen is soft nontender no masses positive bowel sounds all 4 quadrants Back: No CVA tenderness no spinous process tenderness from cervical spine thoracic and lumbar spine Skin: Intact no petechiae rash induration ulceration or crepitus Extremities: Moving all extremity against resistance cap refill less than 2 seconds neurosensory intact Neuro: Awake alert oriented x3 Glascow coma 15 no focal deficits] Course Course Course Narrative: CT shows no abscess in the nose, will discharge the patient home on Augmentin and he is to follow-up with a primary care doctor. Discussed with the patient that he has cold-like symptoms which are probably viral, and cellulitis of the nose which he needs to follow-up with with his doctor in 7 to 10 days. Patient also advised if there is worsening of symptoms including redness or pus to return the emergency room for reevaluation. Patient refused medication and states he has some of his at home . Quality Measures none Orders Category Date Time Status CT Screening NOW Care 09/26/25 11:57 Active Insert IV STAT Care 09/26/25 11:[address] facial bones w con Stat Exams 09/26/25 11:56 Completed Blood Culture (Lab) Stat Lab 09/26/25 12:03 Received CBC Stat Lab 09/26/25 12:03 Completed CRP [C-Reactive Protein] Stat Lab 09/26/25 12:03 Completed Comprehensive Metabolic Panel Stat Lab 09/26/25 12:03 Completed Lactate (Lactic Acid) Stat Lab 09/26/25 12:03 Completed Procalcitonin Stat Lab 09/26/25 12:03 Completed Strep A Rapid Stat Lab 09/26/25 12:29 Completed Ibuprofen Tab [Motrin Tab] Med 09/26/25 12:01 Discontinued 800 mg PO X1 ONE cefTRIAXone/D5w 1gm IV premix [Rocephin/D5w 1gm IV Med 09/26/25 12:18 Discontinued premix] 1 gm in 50 ml IV X1 Vital Signs Vital signs: Vital Signs Temperature 100.4 F 09/26/25 11:28 Pulse Rate 117 H 09/26/25 11:28 Respiratory Rate 24 H 09/26/25 11:28 Blood Pressure 129/87 H 09/26/25 11:28 Pulse Oximetry (%) 97 09/26/25 11:28 Oxygen Delivery Method Room Air 09/26/25 11:28 Discharge Plan Plan Patient Disposition: HOME (Self Care) Patient condition on transfer: Stable Prescriptions/Referrals Prescriptions/Med Rec: No Action celecoxib 200 mg capsule 200 mg PO BID Qty: 60 2RF acetaminophen 500 mg capsule 1,000 mg PO Q8HR PRN (Reason: pain) Qty: 30 0RF Referrals: No Primary/Family,Physician [Primary Care Provider] - In 1 week Corey Ramírez MD [Physician, Family Practice] - In 1 week Problem List Clinical Impression: Cellulitis of nose Patient/Caregiver Discharge Instructions Other Activity Instructions:: Take the medications as prescribed completely gone take your pain medication as needed. Take a picture of your nose once a day. If the nose gets worse, redness increases with fever that is high, or puslike discharge from the nose return to the emergency room for reevaluation otherwise follow-up with your doctor in 7 to 10 days. Education Materials: ED Cellulitis, Facial, ED URI, Viral, No Abx (Adult) Print Language: Czech Stand Alone Forms: [employer] Award Info., Work/School Release, Patient Portal Info Letter TUCKER/JEAN CLAUDE Supervising Physician TUCKER/JEAN CLAUDE Supervising Physician: Kirill MURCIA Clinical Information Provided by: patient Medical Records reviewed [facility] Meds/Rx considered, not ordered None Labs/Rad/Tests considered, not ordered None Chronic Illness/Social Conditions which may negatively complicate care or outcome(s)-explain: None or not applicable EKG EKG not done Labs Labs: interpreted by me Lab(s) Interpretation(s): CBC shows a mild leukocytosis of 12,000 no anemia or thrombocytopenia CMP shows no significant electrolyte imbalances renal impairment transaminitis or T. bili elevation C-reactive protein 8.8. Procalcitonin 0.06. Strep is negative Lactic acid is 1.0. Imaging Imaging interpretation: interpreted by me Medication Administration(s) Medication Administration History Discontinued Medications Ceftriaxone Sodium/Dextrose (Rocephin/D5w 1gm Iv Premix) 1 gm in 50 mls @ 100 mls/hr IV X1 ONE Stop: 09/26/25 12:47 Last Infusion: 09/26/25 12:57 Dose: Infused Documented By: Admin: 09/26/25 12:27 Dose: 100 mls/hr Documented By: BY Ibuprofen (Ibuprofen Tab 400 Mg Tablet) 800 mg PO X1 ONE Stop: 09/26/25 12:02 Last Admin: 09/26/25 12:14 Dose: 800 mg Documented By:
[2025-09-26 12:23] VITALS: BP 142/96; PULSE 97; RESP 19; O2SAT 100
[2025-09-26 12:26] LABS: Lactate (Lactic Acid) 1.0 mMol/L (0.4-2.0)
[2025-09-26] MEDS: cefTRIAXone/D5w 1gm IV premix 1 GM/50 ML BAG IV (12:27)
[2025-09-26 12:51] LABS: Strep A Rapid Negative (Negative)
[2025-09-26 12:59] LABS: Alanine Aminotransferase 14 U/L (10-49); Albumin, Serum 4.7 gm/dL (3.5-5.0); Albumin/Globulin Ratio 1.6 (1.2-2.2); Alkaline Phosphatase 66 U/L (46-116); Anion Gap 7 (7-16); Aspartate Amino Transferase 19 U/L (0-34); BUN/Creatinine Ratio 8 Ratio (12-20); Basophils # (Auto) 0.1 Thou/mm3 (0.0-0.2); Basophils % (Auto) 0 % (0-2.5); Bilirubin,Total 0.5 mg/dL (0.3-1.2); Blood Urea Nitrogen 8 mg/dL (9-23); C-Reactive Protein 8.8 mg/dL (0.0-0.9); Calcium 9.7 mg/dL (8.3-10.6); Calcium (Corrected) 9.7 mg/dL (8.5-10.1); Carbon Dioxide 29.0 mMol/L (20.0-31.0); Chloride 104 mMol/L (98-107); Creatinine (Component) 1.0 mg/dL (0.6-1.3); Eosinophils # (Auto) 0.0 Thou/mm3 (0.0-0.5); Eosinophils % (Auto) 0 % (0-10); Estimated Creatinine Clearance 110.6 mL/min (>60); Globulin 3.0 gm/dL (2.3-3.5); Glucose 106 mg/dL (74-106); Hematocrit 44.7 % (41.0-53.0); Hemoglobin 15.4 g/dL (13.5-16.0); Immature Granulocytes Auto 0.03 Thou/mm3 (0.00-0.00); Lymphocytes # (Auto) 1.1 Thou/mm3 (1.0-4.8); Lymphocytes % (Auto) 9 % (10-50); Mean Corpuscular HGB Conc 34.5 g/dl (31.0-37.0); Mean Corpuscular Hemoglobin 30.3 pg (25.0-35.0); Mean Corpuscular Volume 88 fL (80-100); Monocytes # (Auto) 1.5 Thou/mm3 (0.0-0.8); Monocytes % (Auto) 13 % (0-12); Neutrophils # (Auto) 9.3 Thou/mm3 (1.8-7.7); Neutrophils % (Auto) 77 % (37-80); Nucleated Red Blood Cell # 0.00 Thou/mm3 (0.00-0.00); Nucleated Red Blood Cell % 0 /100 WBC (0); Osmolality,Calculated 277 (275-295); Platelet Count 217 Thou/mm3 (140-440); Potassium 4.5 mMol/L (3.4-5.1); Procalcitonin 0.06 ng/ml (0.0-0.49); RDW Standard Deviation 38.4 fL (35.1-43.9); Red Blood Count 5.09 Miln/mm3 (4.50-5.90); Sodium 140 mMol/L (136-145); Total Protein 7.7 gm/dL (5.7-8.2); White Blood Count 12.0 Thou/mm3 (3.8-10.6); eGFR > 60 See Note
[2025-09-26 14:20] VITALS: BP 121/74; PULSE 91; RESP 18; TEMP 36.8; O2SAT 98
[2025-09-26 14:33] VITALS: TEMP 36.8
== END 2025-09-26 14:30 | disposition home or self-care (01) ==
PROVIDERS: Nurse Practitioner Family; Emergency Provider Emergency Medicine
DX: J34.0 Abscess, furuncle and carbuncle of nose (principal)
CPT/HCPCS: 36415; 70487; 80053; 83605; 84145; 85025; 86140; 87040; 87651; 96365; 99283; A4649; J0696; Q9967; A9270

== ENCOUNTER 2025-09-27 10:37 | Emergency (ER) | payer MEDICAID, SELFPAY ==
[2025-09-27 10:37] VITALS: BMI 30.2
[2025-09-27 10:52] VITALS: BP 129/86; PULSE 97; RESP 16; TEMP 37.3; O2SAT 97
--- NOTE | 2025-09-27 10:58 | PD.EDRME ---
Rapid Medical Screening Exam RME Arrival date/time: 09/27/25 10:37 40-year-old male with no known medical history presents to the emergency room with a chief complaint of small abscesses inside the bilateral naris. Patient states he got his nose waxed 3 days ago and the symptoms began as a small pimple. I have greeted and performed a focused initial assessment of this patient. A comprehensive ED assessment and evaluation of the patient, analysis of all test results, and completion of the medical decision making process will be conducted by additional ED providers. Chief Complaint: Skin/Abscess/Foreign Body Time Seen by Provider: 09/27/25 10:56 Vital signs: Vital Signs Temperature 99.1 F 09/27/25 10:52 Pulse Rate 97 09/27/25 10:52 Respiratory Rate 16 09/27/25 10:52 Blood Pressure 129/86 H 09/27/25 10:52 Pulse Oximetry (%) 97 09/27/25 10:52 Oxygen Delivery Method Room Air 09/27/25 10:52 Vital signs reviewed by provider: Yes Exam: Multiple small pimples inside the naris GCS 15 Clinical Impression: Cellulitis of nose/abscess
[2025-09-27 11:27] LABS: Lactate (Lactic Acid) 1.0 mMol/L (0.4-2.0)
[2025-09-27 11:31] LABS: Basophils # (Auto) 0.0 Thou/mm3 (0.0-0.2); Basophils % (Auto) 0 % (0-2.5); Eosinophils # (Auto) 0.1 Thou/mm3 (0.0-0.5); Eosinophils % (Auto) 1 % (0-10); Hematocrit 41.0 % (41.0-53.0); Hemoglobin 14.1 g/dL (13.5-16.0); Immature Granulocytes Auto 0.03 Thou/mm3 (0.00-0.00); Lymphocytes # (Auto) 1.1 Thou/mm3 (1.0-4.8); Lymphocytes % (Auto) 11 % (10-50); Mean Corpuscular HGB Conc 34.4 g/dl (31.0-37.0); Mean Corpuscular Hemoglobin 30.2 pg (25.0-35.0); Mean Corpuscular Volume 88 fL (80-100); Monocytes # (Auto) 1.3 Thou/mm3 (0.0-0.8); Monocytes % (Auto) 13 % (0-12); Neutrophils # (Auto) 7.9 Thou/mm3 (1.8-7.7); Neutrophils % (Auto) 75 % (37-80); Nucleated Red Blood Cell # 0.00 Thou/mm3 (0.00-0.00); Nucleated Red Blood Cell % 0 /100 WBC (0); Platelet Count 215 Thou/mm3 (140-440); RDW Standard Deviation 38.4 fL (35.1-43.9); Red Blood Count 4.67 Miln/mm3 (4.50-5.90); White Blood Count 10.5 Thou/mm3 (3.8-10.6)
--- NOTE | 2025-09-27 11:38 | PC.NURSE ---
Patient states he does not do well with percocet and does not want to take it, offered another pain medication he stated he was ok right now.
[2025-09-27 11:40] LABS: Collection Type, Urine Clean Catch; Squamous Epithelial Cell,Urine 0 /hpf (0-5)
[2025-09-27 11:53] LABS: Alanine Aminotransferase 12 U/L (10-49); Albumin, Serum 4.4 gm/dL (3.5-5.0); Albumin/Globulin Ratio 1.6 (1.2-2.2); Alkaline Phosphatase 64 U/L (46-116); Anion Gap 9 (7-16); Aspartate Amino Transferase 14 U/L (0-34); BUN/Creatinine Ratio 11 Ratio (12-20); Bilirubin,Total 0.3 mg/dL (0.3-1.2); Blood Urea Nitrogen 10 mg/dL (9-23); Calcium 9.1 mg/dL (8.3-10.6); Calcium (Corrected) 9.1 mg/dL (8.5-10.1); Carbon Dioxide 23.6 mMol/L (20.0-31.0); Chloride 107 mMol/L (98-107); Creatinine (Component) 0.9 mg/dL (0.6-1.3); Estimated Creatinine Clearance 122.9 mL/min (>60); Globulin 2.7 gm/dL (2.3-3.5); Glucose 126 mg/dL (74-106); Osmolality,Calculated 280 (275-295); Potassium 4.0 mMol/L (3.4-5.1); Procalcitonin 0.08 ng/ml (0.0-0.49); Sodium 140 mMol/L (136-145); Total Protein 7.1 gm/dL (5.7-8.2); eGFR > 60 See Note
[2025-09-27 12:00] LABS: Bilirubin,Urine Negative (Negative); Blood,Urine Negative (Negative); Clarity,Urine Clear (Clear/Hazy); Color,Urine Yellow (Lt Yel-Yel); Glucose, Urine Negative (Negative); Ketones,Urine Negative (Negative); Leukocyte Esterase,Urine Negative (Negative); Nitrite,Urine Negative (Negative); PH,Urine 7.0 (5.0-7.0); Protein,Urine Trace (Neg - Trace); RBC,Urine 2 /hpf (0-3); Specific Gravity,Urine 1.032 (1.001-1.035); Urobilinogen,Urine 2.0 mg/dL (0.0-1.0); WBC,Urine < 1 /hpf (0-5)
--- NOTE | 2025-09-27 12:03 | EDNOTE_ITS ---
<Statement entered by Melissa Pettit MD - 09/27/25 17:16> As co-signing physician, I was present and available for consult prn. I concur with the plan and care as documented by the midlevel provider. ED General RME/HPI General Chief complaint: Skin/Abscess/Foreign Body Stated complaint: swelling to face Time Seen by Provider: 09/27/25 10:56 Arrival date/time: 09/27/25 10:37 CC: Increased nose pain with drainage from the left nares, and swelling up in to the just below the left eye HPI patient has no cellulitis was seen here yesterday by myself and had extensive workup which showed cellulitis. The patient denies fever chills or shortness of breath patient is refusing all pain medication. Patient is concerned because of the swelling that goes further up towards patient denies any blurred vision seeing spots or altered vision. No other complaints at this time patient states the inside of the left nares has opened up and drained a small amount of exudate. RME / HPI RME / HPI narrative: 09/27/25 10:37 40-year-old male with no known medical history presents to the emergency room with a chief complaint of small abscesses inside the bilateral naris. Patient states he got his nose waxed 3 days ago and the symptoms began as a small pimple. I have greeted and performed a focused initial assessment of this patient. A comprehensive ED assessment and evaluation of the patient, analysis of all test results, and completion of the medical decision making process will be conducted by additional ED providers. Exam: Multiple small pimples inside the naris GCS 15 Impression: Cellulitis of nose/abscess Related Data Previous Rx's ?Medication ?Instructions ?Recorded celecoxib 200 mg capsule 200 mg PO BID #60 caps 10/23 acetaminophen 500 mg capsule 1,000 mg (2 x 500 mg) PO Q8HR PRN 03/10/25 pain #30 caps amoxicillin 875 mg-potassium 1 tab PO BID #14 tabs clavulanate 125 mg tablet prednisone 20 mg tablet See Taper PO BID 3 days #6 t abs 09/27/25 Allergies Allergy/AdvReac Type Severity Reaction Status Date / Time No Known Allergies Allergy Verified 09/27/25 10:39 Review of Systems Review of Systems Narrative Review of Systems: GEN: No fever, no chills, no weight loss EYES: No discharge, no visual changes, no pain HEENT: No ear pain, no congestion, no sore throat PULM: No shortness of breath, no cough, no congestion CV: No chest pain, no dyspnea on exertion, no palpitations GI: No nausea, no vomiting, no diarrhea, no pain, no constipation : No frequency, no urgency, no dysuria MUSC/SKEL: No joint pain, no back pain SKIN: No rash PSYCH: No hallucinations, no depression HEME/LYMPH: No easy bleeding or bruising tendencies NEURO: No weakness, no headache Past Medical History Past Medical History NEUROLOGIC: Negative Neurological Disorders or Seizures CARDIAC: Positive Cardiac Arrhythmia; Negative Cardiac Disorders or Congestive Heart Failure RESPIRATORY: Positive Asthma; Negative Chronic Obstructive Pulmonary Disease (COPD), Smoking, Smoking Cessation Counseling, Smoking Exposure or Tobacco Use GASTROINTESTINAL: Positive Gastroesophageal Reflux Disease; Negative Gastrointestinal Disorders GENITOURINARY: Negative Genitourinary Disorders or Renal Disease MUSCULOSKELETAL: Positive Musculoskeletal Disorders ENDOCRINE: Negative Endocrine Disorders, Diabetes Mellitus Type 1 or Diabetes Mellitus Type 2 HEMATOLOGIC: Negative Blood Disorders or Sickle Cell Disease PSYCHO/SOCIAL: Positive Anxiety OTHER HISTORY: Positive Hospitalization; Negative Autoimmune Disease, Shingles, Blood Transfusions, Blood Transfusion Reaction, Anesthesia Reactions or Cancer Family History FAMILY HISTORY: Positive Family Surgery; Negative Family Psychiatric Problems, Family Respiratory Disorders, Family Cardiac Disorders, Family Gastrointestinal Problems, Family Cancer or Family Anesthesia Reaction Surgical History SURGICAL: Positive Nose Surgery and Arthroscopy Social History SMOKING STATUS: Never smoker SUBSTANCE USE: does not use ED Exam Narrative Physical exam: [General: Obese in mild discomfort but not in any acute distress Head normocephalic HEENT: Face: Patient has nose edema, small amount of serous exudative drainage from the left nares no epistaxis. Tip of the nose is erythematous edematous and exquisitely tender to palpation. There is no significant streaking into the face and mild tenderness bilaterally to the cheeks just below both eyes. No significant edema or erythema or fluctuance. Mouth pink moist membranes uvula is midline swallow symmetrical phonation is normal no masses palpated within the mouth upper lip. Eyes: Pupils are PERRLA EOMs are intact all of the substance of HEENT are within acceptable limits Neck is supple nontender Chest equal chest rise nontender to palpation Respiratory: Clear to auscultation no wheezes crackles or rubs CV: Rate rhythm is regular no murmurs rubs or clicks Abdomen is soft nontender no masses positive bowel sounds all 4 quadrants Back: No CVA tenderness no spinous process tenderness from cervical spine thoracic and lumbar spine Skin: Intact no petechiae rash induration ulceration or crepitus Extremities: Moving all extremity against resistance cap refill less than 2 seconds neurosensory intact Neuro: Awake alert oriented x3 Glascow coma 15 no focal deficits] Course Quality Measures none Orders Category Date Time Status Blood Culture (Lab) Stat Lab 09/27/25 11:20 Received CBC Stat Lab 09/27/25 11:15 Completed CMP [Comprehensive Metabolic Panel] Stat Lab 09/27/25 11:15 Completed Lactate (Lactic Acid) Stat Lab 09/27/25 11:15 Completed Procalcitonin Stat Lab 09/27/25 11:15 Completed UA [Urinalysis] Stat Lab 09/27/25 11:35 Received Urine Culture Stat Lab 09/27/25 11:35 Received cefTRIAXone [Rocephin] 1,000 mg Med 09/27/25 12:02 Ordered Lidocaine 1% Pf Vial 5ml [Xylocaine 1% 5 ml] 2.1 ml IM X1 oxyCODONE/APAP 5/325 [Percocet 5/325] Med 09/27/25 11:29 Discontinued 1 tab PO X1 ONE predniSONE Med 09/27/25 12:02 Once 20 mg PO X1 ONE Vital Signs Vital signs: Vital Signs Temperature 99.1 F 09/27/25 10:52 Pulse Rate 97 09/27/25 10:52 Respiratory Rate 16 09/27/25 10:52 Blood Pressure 129/86 H 09/27/25 10:52 Pulse Oximetry (%) 97 09/27/25 10:52 Oxygen Delivery Method Room Air 09/27/25 10:52 Discharge Plan Plan Patient Disposition: HOME (Self Care) Patient condition on transfer: Stable Prescriptions/Referrals Prescriptions/Med Rec: New prednisone 20 mg tablet See Taper PO BID 3 Days Qty: 6 0RF Taper: Prednisone Taper 20 mg DAILY for 2 Days and 0 Hour 10 mg DAILY for 2 Days and 0 Hour 5 mg DAILY for 7 Days and 0 Hour No Action celecoxib 200 mg capsule 200 mg PO BID Qty: 60 2RF acetaminophen 500 mg capsule 1,000 mg PO Q8HR PRN (Reason: pain) Qty: 30 0RF amoxicillin-pot clavulanate 875-125 mg tablet 1 tab PO BID Qty: 14 0RF Referrals: Jian Tejeda [Primary Care Provider] - In 1 week Problem List Clinical Impression: Cellulitis of nose Patient/Caregiver Discharge Instructions Other Activity Instructions:: Continue on the antibiotics prescribed add the steroids in addition. Please return in 24 hours for repeat examination. Education Materials: ED Cellulitis Print Language: Italian Stand Alone Forms: [employer] Award Info., Patient Portal Info Letter, Work/School Release PA/MAIL PROCESSING ASSOCIATE Supervising Physician PA/MAIL PROCESSING ASSOCIATE Supervising Physician: Kirill Oden ENP MDM Clinical Information Provided by: patient Medical Records reviewed [facility] Labs/Rad/Tests considered, not ordered None Chronic Illness/Social Conditions Explain: No cellulitis EKG EKG not done Labs Labs: interpreted by nm Lab(s) Interpretation(s): CBC shows no acute leukocytosis anemia thrombocytopenia CMP shows no significant electrolyte imbalances or renal impairment transaminitis or T. bili elevation The lactic and Pro-Yovany are within acceptable limits. Imaging Imaging interpretation: none Medication Administration(s) none Medication Administration History Ceftriaxone Sodium 1,000 mg/ (Lidocaine HCl 2.1 ml) 0 mg IM X1 ONE Stop: 09/27/25 12:03 Prednisone (Prednisone 20 Mg Tablet) 20 mg PO X1 ONE Stop: 09/27/25 12:03 Discontinued Medications Oxycodone/Acetaminophen (Oxycodone/Apap 5/325 Tablet) 1 tab PO X1 ONE Stop: 09/27/25 11:30 Last Admin: 09/27/25 11:38 Dose: Not Given Documented By: KAYLI Non-Admin Reason: Patient Refused Diagnosis Differential Diagnosis ED Complaint MDM: Nose abscess no cellulitis nose abrasion
== END 2025-09-27 12:18 | disposition home or self-care (01) ==
PROVIDERS: Nurse Practitioner Family; Emergency Provider Emergency Medicine; PCP Family Medicine
DX: J34.0 Abscess, furuncle and carbuncle of nose (principal)
CPT/HCPCS: 36415; 80053; 81001; 83605; 84145; 85025; 87040; 87086; 96372; 99283; J0696; J3490; J7512

== ENCOUNTER 2025-10-16 13:56 | Emergency (ER) | payer MEDICAID, SELFPAY ==
[2025-10-16 15:26] VITALS: BP 134/93; PULSE 80; RESP 20; TEMP 36.8; O2SAT 100
--- NOTE | 2025-10-16 16:22 | PD.EDURI ---
Upper Respiratory Inf. RME/HPI General Chief Complaint: Flu Like Symptoms Stated Complaint: Cough X 4 days, fever X 2 days Time Seen by Provider: 10/16/25 14:32 Arrival date/time: 10/16/25 13:56 This is a 40-year-old male that comes into the emergency room with complaints of cough, congestion, and shortness of breath sometimes after coughing for long periods of time. Patient states that he was recently treated for a sinus infection. Patient thinks he was on Augmentin. Patient also finished a course of steroids by his primary doctor. Patient states he was feeling a little bit better and then recently started having more of a cough. Patient states he does not have an inhaler to help him when he has these episodes of shortness of breath from coughing. Patient also states that he has been doing Mucinex intranasally but it has not been helping. Patient also reports that he has been also doing nasal rinses of his nose. Patient's biggest complaint is congestion and cough. Related Data Previous Rx's ?Medication ?Instructions ?Recorded celecoxib 200 mg capsule 200 mg PO BID #60 caps 10/23/24 acetaminophen 500 mg capsule 1,000 mg (2 x 500 mg) PO Q8HR PRN 03/10/25 pain #30 caps amoxicillin 875 mg-potassium 1 tab PO BID #14 tabs 09/26/25 clavulanate 125 mg tablet albuterol sulfate 90 mcg/actuation 2 puff inhalation QID PRN 10/16/25 aerosol inhaler (Ventolin HFA) shortness of breath or wheezing #8.5 grams promethazine-DM 6.25 mg-15 mg/5 mL 5 ml PO Q6H PRN cough #240 mL 10/16/25 oral syrup Allergies Allergy/AdvReac Type Severity Reaction Status Date / Time No Known Allergies Allergy Verified 10/16/25 14:00 Review of Systems Review of Systems Systems Reviewed: All systems reviewed, normal except as documented Past Medical History Past Medical History NEUROLOGIC: Negative Neurological Disorders or Seizures CARDIAC: Positive Cardiac Arrhythmia; Negative Cardiac Disorders or Congestive Heart Failure RESPIRATORY: Positive Asthma; Negative Chronic Obstructive Pulmonary Disease (COPD), Smoking, Smoking Cessation Counseling, Smoking Exposure or Tobacco Use GASTROINTESTINAL: Positive Gastroesophageal Reflux Disease; Negative Gastrointestinal Disorders GENITOURINARY: Negative Genitourinary Disorders or Renal Disease MUSCULOSKELETAL: Positive Musculoskeletal Disorders ENDOCRINE: Negative Endocrine Disorders, Diabetes Mellitus Type 1 or Diabetes Mellitus Type 2 HEMATOLOGIC: Negative Blood Disorders or Sickle Cell Disease PSYCHO/SOCIAL: Positive Anxiety OTHER HISTORY: Positive Hospitalization; Negative Autoimmune Disease, Shingles, Blood Transfusions, Blood Transfusion Reaction, Anesthesia Reactions or Cancer Family History FAMILY HISTORY: Positive Family Surgery; Negative Family Psychiatric Problems, Family Respiratory Disorders, Family Cardiac Disorders, Family Gastrointestinal Problems, Family Cancer or Family Anesthesia Reaction Surgical History SURGICAL: Positive Nose Surgery and Arthroscopy Social History SMOKING STATUS: Never smoker SUBSTANCE USE: does not use ED Exam Narrative Physical exam: VITAL SIGNS: Reviewed. GENERAL APPEARANCE: Alert and interactive, follows commands, no acute distress, HEAD AND FACE: Non-traumatic. ENT: PERRL, conjuctiva pink and clear, eyelid no trauma, Mucous membrane moist. NECK: Supple, nontender, no nuchal rigidity. CHEST: No tenderness, no crepitus, no paradoxical movement, no retractions. LUNGS: Clear, well ventilated, symmetric, no rales, no wheezing, no rhonchi, no stridor, good breath sounds bilaterally. HEART: Regular rate, regular rhythm, no murmur, no gallops. ABDOMEN: Soft, nondistended, no guarding, nontender, no rebound, no masses, NEUROLOGICAL: Gross motor function intact sensory function intact, Appropriate for age. MUSCULOSKELETAL: low back nontender, full range of motion. EXTREMITIES: No redness no swelling no skin breakdown on bilateral foot and leg. Distal neurovascular status intact bilateral foot SKIN: Color pink, dry Course Quality Measures none Orders Category Date Time Status Promethazine/Dextromethorph [Phenergan Dm Syrup] Med 10/16/25 16:21 Discontinued 5 ml PO X1 ONE Vital Signs Vital signs: Vital Signs Temperature 98.2 F 10/16/25 15:26 Pulse Rate 80 10/16/25 15:26 Respiratory Rate 20 10/16/25 15:26 Blood Pressure 134/93 H 10/16/25 15:26 Pulse Oximetry (%) 100 10/16/25 15:26 Oxygen Delivery Method Room Air 10/16/25 15:26 Upper Respiratory Infection MDM Narrative MDM Narrative:: I spoke to patient at length. Patient just finished a course of antibiotics and steroids. Patient still has nasal congestion and still has a cough. I spoke to patient about doing an x-ray his lungs sound clear no wheezing but he states that he wheezes sometimes at night. Explained to patient that I do not want to put him on another course of antibiotics and he was just on antibiotics. I did suggest patient use Flonase [id number]. I will prescribe patient Promethazine DM to help with his cough and let him sleep at night. I also told patient that I would prescribe him an inhaler. I also recommended for patient to take [id number] antihistamine daily. Patient verbalized understanding and feels comfortable plan of care. Dragon dictation: Although this document has been carefully reviewed, there may still be some phonetic and other typographical errors. These errors are purely grammatical due to imperfections in the software program and should not be construed in any way to compromise the substance of the patient's medical care during this visit. Patient data External records reviewed:: [facility] previous records Clinical information provided by:: patient Social determinants that could affect healthcare access:: none Patient has the following chronic illnesses:: none How is presenting disease/condition affected by chronic disease/condition?: no chronic disease Evaluation data The following diagnostics were reviewed and interpreted by me:: lab results Lab and/or radiology exams considered but not ordered:: none Interpretation Summary: see note Medications / Prescriptions Medications or Prescriptions considered but not ordered:: none Medication administrations:: Medication Administration History Discontinued Medications Promethazine HCl/Dextromethorphan (Promethazine/Dm Syrup 5 Ml Dose) 5 ml PO X1 ONE; Protocol Stop: 10/16/25 16:22 Last Admin: 10/16/25 16:31 Dose: 5 ml Documented By: BHARTI see [facility] Consultations Consultation(s) initiated? (list below): No Diagnosis Upper Respiratory Differential Diagnosis: upper respiratory infection, viral infection and influenza Most likely diagnosis given after review of the tests above:: uri Admission Indicated Admission indicated?: not indicated Admission Request Was there a request for admission?: No Disposition Plan Disposition Plan: Discharge Discharge Attestation Discharge Attestation: The patient and all family members were given an opportunity to ask questions and understood the discharge instructions. Discharge instructions specifically effects, indications for sooner follow up or return to the emergency department, and the expected course of current diagnosis. Patient condition: Stable Discharge Plan Plan Patient Disposition: HOME (Self Care) Patient condition on transfer: Stable Prescriptions/Referrals Prescriptions/Med Rec: New albuterol sulfate [Ventolin HFA] 90 mcg/actuation HFA aerosol inhaler 2 puff inhalation QID PRN (Reason: shortness of breath or wheezing) Qty: 8.5 0RF promethazine-DM 6.25-15 mg/5 mL syrup 5 ml PO Q6H PRN (Reason: cough) Qty: 240 0RF No Action celecoxib 200 mg capsule 200 mg PO BID Qty: 60 2RF acetaminophen 500 mg capsule 1,000 mg PO Q8HR PRN (Reason: pain) Qty: 30 0RF amoxicillin-pot clavulanate 875-125 mg tablet 1 tab PO BID Qty: 14 0RF Problem List Clinical Impression: URI (upper respiratory infection), RAD (reactive airway disease), Cough Patient/Caregiver Discharge Instructions Discharge Activity: activity as tolerated Education Materials: ED Inhaler Use, ED URI, Viral, No Abx (Adult) Additional Instructions: Follow up with primary provider in 1-2 days. Come back to ED if symptoms change or worsen Print Language: [place]i Stand Alone Forms: Hien Award Info., Patient Portal Info Letter PA/MANAGER OF HEALTH Supervising Physician PA/MANAGER OF HEALTH Supervising Physician: [email or web address]
[2025-10-16] MEDS: PROMETHAZINE/DM SYRUP 5 ML DOSE PO (16:31)
== END 2025-10-16 18:03 | disposition home or self-care (01) ==
LOC: SERX 16:59
PROVIDERS: Emergency Provider Nurse Practitioner Family; PCP Family Medicine
DX: J06.9 Acute upper respiratory infection, unspecified (principal); J45.909 Unspecified asthma, uncomplicated
CPT/HCPCS: 99281; A9270